=== PATIENT | male | born 2000 | race Caucasian/White ===

== ENCOUNTER 2020-02-02 20:41 | Emergency (ER) | payer SELFPAY ==
[~2020-02-02] VITALS: Ht 182.9 cm; Wt 75.0 kg
[2020-02-02 20:52] VITALS: Ht 182.9 cm; Wt 75.0 kg
[2020-02-02 22:00] LABS: BASOPHILS 0 % (0-2); EOSINOPHILS 0.4 % (0-7); HEMATOCRIT 41.4 % (42.0-54.0); HEMOGLOBIN 14.3 g/dL (13.5-17.5); MCH 29.1 pg (26.0-34.0); MCHC 34.5 g/dL (31.0-37.0); MCV 84.3 fL (80.0-100.0); MEAN PLATELET VOLUME 9.3 fL (7.4-10.4); MONOCYTES 19.1 % (2-11); NEUTROPHILS 66.5 % (40-80); PLATELET COUNT 107 10x3/uL (130-400); RBC 4.91 10x6/uL (4.20-6.10); RDW 12.4 % (11.5-14.5); WBC 2.7 10x3/uL (4.8-10.8)
[2020-02-02 22:34] LABS: CALC OSMOLALITY 272 mosm/kg (275-300); CALCIUM 8.6 mg/dL (8.5-10.1); CARBON DIOXIDE 24.6 mmol/L (21.0-32.0); CHLORIDE - SERUM 102 mmol/L (98-107); CREATININE - SERUM 1.2 mg/dL (0.6-1.3); GLUCOSE 139 mg/dL (74-106); POTASSIUM - SERUM 3.5 mmol/L (3.5-5.1); SODIUM 136 mmol/L (136-145); UREA NITROGEN 11 mg/dL (7-18); eGFR NON AFRICAN AMERICAN 82 mL/min (90-120)
[2020-02-02] MEDS ORDERED: DOXYCYCLINE HY100 M2 PO (22:40)
[2020-02-02] MEDS ORDERED: VENTOLIN HFA [SP8 GM INH (22:40)
[2020-02-02 22:41] LABS: ALBUMIN 3.8 g/dL (3.4-5.0); ALKALINE PHOSPHATASE 70 U/L (30-120); ALT (SGPT) 31 U/L (10-68); BILIRUBIN - TOTAL 1.04 mg/dL (0.2-1.3); PROTEIN - SERUM 7.2 g/dL (6.4-8.2)
[2020-02-02 22:54] VITALS: BP 114/58
== END 2020-02-02 22:54 | disposition home or self-care (01) ==
LOC: D.ER 20:41
PROVIDERS: Emergency Medicine
DX: J20.9 Acute bronchitis, unspecified (principal); R50.9 Fever, unspecified; R51 Headache; R11.0 Nausea